=== PATIENT | male | born 2000 | race Hispanic/Latino ===

== ENCOUNTER 2020-05-18 10:59 | Emergency (ER) | payer SELFPAY ==
[~2020-05-18] VITALS: Ht 172.7 cm; Wt 98.4 kg
--- NOTE | 2020-05-18 12:06 | Diagnostic Imaging Report ---
Right knee, 3 views INDICATION: ^FALL ^[id number] ^[id number] Comparison: None available. Discussion: Multiple views of the right knee are negative for an acute displaced fracture or dislocation. Negative for suprapatellar joint effusion. Joint spaces are well-maintained. Soft tissues are unremarkable. IMPRESSION: Unremarkable radiographs of the right knee. Signed by: Ben Mcclellan MD on 05/18/2020 12:03 PM
--- NOTE | 2020-05-18 12:42 | Emergency Department Note ---
History of Present Illnes History of Present Illness Chief Complaint: Extremity Trauma/Pain History of Present Illness This is a 19 year old male PT TORE ACL 03/24 AND IS SCHEDULED TO HAVE SURGERY ON 05/28. PT WAS WALKING TODAY DOWN STEPS AND KNEE "GAVE OUT". PT HAS HAD KNEE GIVE OUT BEFORE BUT THIS IS WORSE. PT UNABLE TO BEAR WEIGHT ON LEG. Historian: Patient, Family Member Arrival Mode: Car Additional Treatment CALL CENTER ASSISTANT: IBUPROFEN 45 MINS ETA [employer]er Casing Required: No Onset (how long ago): hour(s) Location: RIGHT KNEE Quality: PAIN Radiation: Reports non-radiation Severity: moderate Onset quality: sudden Timing of current episode: constant Progression: unchanged Chronicity: new Context: Denies recent illness Relieving factors: none Exacerbating factors: none Associated symptoms: Reports denies other symptoms Past Medical/Family History Physician Review I have reviewed the patient's past medical and family history. Any updates have been documented here. Past Medical History Recent Fever: No Clinical Suspicion of Infectio: No New/Unexplained Change in Ment: No Past Medical History: None Past Surgical History: None Social History Smoking Cessation: Never Smoker Counseling Performed: No Alcohol Use: None Any Illegal Drug Use: No TB Exposure/Symptoms: No Physically hurt or threatened: No Family History Family history of heart diseas: No Other Last Tetanus: Up to date Any Pre-Existing Lines (PICC,: No Review of Systems Review of Systems Constitutional: Reports no symptoms EENTM: Reports no symptoms Cardiovascular: Reports no symptoms Respiratory: Reports no symptoms Gastrointestinal: Reports no symptoms Genitourinary: Reports no symptoms Musculoskeletal: Reports as per HPI Integumentary: Reports no symptoms Neurological: Reports no symptoms Psychological: Reports no symptoms Endocrine: Reports no symptoms Hematological/Lymphatic: Reports no symptoms Physical Exam Related Data Allergies: Coded Allergies: No Known Allergies (Unverified , 01/16/16) Triage Vital Signs Vital Signs Date Time Temp Pulse Resp B/P (MAP) Pulse Ox O2 Delivery O2 Flow Rate FiO2 05/18/20 11:11 98.0 74 20 146/74 100 Room Air Vital signs reviewed: Yes Physical Exam CONSTITUTIONAL Constitutional: Present well-developed, Present well-nourished HENT HENT: Present normocephalic, Present atraumatic, Present oropharynx clear/moist, Present nose normal HENT L/R: Present left ext ear normal, Present right ext ear normal EYES Eyes: Reports PERRL, Reports conjunctivae normal NECK Neck: Present ROM normal PULMONARY Pulmonary: Present effort normal, Present breath sounds normal CARDIOVASCULAR Cardiovascular: Present regular rhythm, Present heart sounds normal, Present capillary refill normal, Present normal rate GASTROINTESTINAL Abdominal: Present soft, Present nontender, Present bowel sounds normal GENITOURINARY Genitourinary: Present exam deferred SKIN Skin: Present warm, Present dry MUSCULOSKELETAL Musculoskeletal: Present other (MILD SWELLING RIGHT KNEE WITH DECR ROM) NEUROLOGICAL Neurological: Present alert, Present oriented x 3, Present no gross motor or sensory deficits PSYCHOLOGICAL Psychological: Present mood/affect normal, Present judgement normal Results Imaging Imaging results reviewed: Yes Impressions Right knee, 3 views INDICATION: ^FALL ^[id number] ^0 Comparison: None available. Discussion: Multiple views of the right knee are negative for an acute displaced fracture or dislocation. Negative for suprapatellar joint effusion. Joint spaces are well-maintained. Soft tissues are unremarkable. IMPRESSION: Unremarkable radiographs of the right knee. Signed by: Ben Mcclellan MD on 05/18/2020 12:03 PM Assessment & Plan Medical Decision Making MDM H/O ACL TEAR, SCHEDULED FOR SURG ,KNEE GAVE OUT TODAY - ? CRUCIATE TEAR - CHECK XRAY R/O FX Reassessment Reassessment DC HOME, F/U ORTHO, RTED PRN, KNEE IMMOBILIZER/CRUTCHES/NWB, ICE/ELEVATION Assessment & Plan Final Impression: (1) Sprain of right knee Depart Disposition: HOME, SELF-CARE Last Vital Signs Date Time Temp Pulse Resp B/P (MAP) Pulse Ox O2 Delivery O2 Flow Rate FiO2 05/18/20 11:11 98.0 74 20 146/74 100 Room Air Home Meds No Active Prescriptions or Reported Meds ESTHELA BRYSON MD May 18, 2020 12:42
== END 2020-05-18 13:08 | disposition home or self-care (01) ==
LOC: ER 11:04
DX: S83.91XA Sprain of unspecified site of right knee, initial encounter (principal); X50.1XXA Overexertion from prolonged static or awkward postures, initial encounter; Y93.01 Activity, walking, marching and hiking
CPT/HCPCS: 99282